=== PATIENT | female | born 1985 | race Caucasian/White ===

== ENCOUNTER → 2021-10-03 | Outpatient (CLI) | payer OTHER | END | disposition home or self-care (01) | LOC: NST 13:37 | PROVIDERS: ATTEND Obstetrics & Gynecology Maternal & Fetal Medicine | DX: Z34.83 Encounter for supervision of other normal pregnancy, third trimester (principal) ==

== ENCOUNTER 2021-12-11 16:39 | Outpatient (CLI) | payer OTHER | END 2021-12-11 16:59 | disposition home or self-care (01) | LOC: NST 16:39 | PROVIDERS: ATTEND Obstetrics & Gynecology Maternal & Fetal Medicine | DX: Z34.83 Encounter for supervision of other normal pregnancy, third trimester (principal) ==

== ENCOUNTER 2021-12-16 16:35 | Inpatient (IN) | payer OTHER ==
[~2021-12-16] VITALS: Ht 152.4 cm; Wt 93.4 kg
[2021-12-20] MEDS ORDERED: PRENATAL TABLE1 EAC1 PO (10:14)
== END 2021-12-22 11:24 | disposition home or self-care (01) | DRG 807 ==
LOC: LDR 16:35 → OB/GYN 12-20 07:55
PROVIDERS: ADMIT Obstetrics & Gynecology Maternal & Fetal Medicine; ATTEND Obstetrics & Gynecology Maternal & Fetal Medicine
PROC: 10E0XZZ Delivery of Products of Conception, External Approach (ICD-10-PCS; principal; 2021-12-20)
PROC: 4A1HXCZ Monitoring of Products of Conception, Cardiac Rate, External Approach (ICD-10-PCS; 2021-12-20)
PROC: 0W8NXZZ Division of Female Perineum, External Approach (ICD-10-PCS; 2021-12-20)
DX: O80 Encounter for full-term uncomplicated delivery (principal); Z37.0 Single live birth; Z3A.40 40 weeks gestation of pregnancy; Z20.822 Contact with and (suspected) exposure to COVID-19

== ENCOUNTER 2021-12-18 10:29 | Outpatient (CLI) | payer OTHER | END 2021-12-18 12:14 | disposition home or self-care (01) | LOC: NST 10:29 | PROVIDERS: ATTEND Obstetrics & Gynecology Maternal & Fetal Medicine | DX: Z34.83 Encounter for supervision of other normal pregnancy, third trimester (principal) ==